=== PATIENT | female | born 1990 | race Caucasian/White ===

== ENCOUNTER 2018-11-01 20:28 | Emergency (ER) | payer SELFPAY ==
[~2018-11-01] VITALS: Ht 177.8 cm; Wt 110.8 kg
[2018-11-01 20:35] VITALS: Ht 177.8 cm; Wt 110.8 kg
== END 2018-11-01 21:33 | disposition left against medical advice (07) ==
LOC: E/R 20:28
DX: Z53.21 Procedure and treatment not carried out due to patient leaving prior to being seen by health care provider (principal)